=== PATIENT | female | born 2000 | race Caucasian/White ===

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

== ENCOUNTER 2023-05-06 19:27 | Emergency (ER) | payer OTHER ==
[~2023-05-06] VITALS: Ht 157.5 cm; Wt 128.8 kg
[~2023-05-06 19:27] MED LIST: FERR-15 PO; FOLI1TAB90 PO; NITR100C15 PO; PRENAVITE PO
[2023-05-06 19:47] VITALS: BP 114/74; PULSE 87; RESP 18; TEMP 98.4; O2SAT 98
[2023-05-06 19:51] VITALS: BP 114/74; PULSE 87; RESP 18; TEMP 98.4
[2023-05-06 20:20] VITALS: O2SAT 98
[2023-05-06] MEDS ORDERED: IBUP-1842 PO (21:18)
== END 2023-05-06 21:26 | disposition home or self-care (01) ==
LOC: MED 19:27
DX: L72.0 Epidermal cyst (principal); K21.9 Gastro-esophageal reflux disease without esophagitis; Z79.899 Other long term (current) drug therapy; Z88.0 Allergy status to penicillin
CPT/HCPCS: 99284